=== PATIENT | female | born 1960 | race Caucasian/White ===

== ENCOUNTER 2016-09-26 05:11 | Emergency (ER) | payer MEDICARE, BC ==
[~2016-09-26] VITALS: Ht 162.6 cm; Wt 68.0 kg
[~2016-09-26 05:11] MED LIST: DULO60CA59 PO; HYDR-3498 PO; LEVE-5 PO; LORA1TAB PO; TRAZ150T65 PO
[2016-09-26] MEDS ORDERED: SOD CHLORIDE 0.9% 500 ML IV STA (05:16)
[2016-09-26 05:18] VITALS: Ht 162.6 cm; Wt 68.0 kg
[2016-09-26] MEDS ORDERED: LORAZEPAM 2 MG INJ ONE (05:20)
[2016-09-26] MEDS ORDERED: LORAZEPAM 2 MG INJ IV ONE (05:20)
[2016-09-26 05:51] LABS: ADD SCAN DIFF NO
[2016-09-26 06:03] LABS: ALBUMIN 4.5 g/dl (3.3-4.9); CHLORIDE 107 mmol/L (97-110)
[2016-09-26 06:04] LABS: POTASSIUM 3.2 mmol/L (3.5-5.1); SODIUM 142 mmol/L (135-144)
[2016-09-26 06:05] LABS: HEMOGLOBIN 14.5 g/dl (12.0-16.0); MEAN CORPUSCULAR HEMOGLOBIN 33.1 pg (29.0-33.0); MEAN CORPUSCULAR HGB CONC 36.3 g/dl (32.0-37.0); MEAN CORPUSCULAR VOLUME 91.3 fl (82.0-101.0); MEAN PLATELET VOLUME 10.8 fl (7.4-10.4); PLATELET COUNT 236 10^3/UL (140-415); RED BLOOD COUNT 4.38 10^6/ul (4.20-5.40); RED CELL DISTRIBUTION WIDTH 13.8 % (11.5-14.5)
[2016-09-26 06:06] LABS: ALKALINE PHOSPHATASE 68 IU/L (42-121); ANION GAP 26 (8-16); ASPARTATE AMINO TRANSFERASE 22 IU/L (15-46); BILIRUBIN,INDIRECT 0.1 mg/dl (0-1.1); BILIRUBIN,TOTAL 0.1 mg/dl (0.2-1.3); BLOOD UREA NITROGEN 4 mg/dl (7-20); CARBON DIOXIDE 12 mmol/L (21-31); CREATININE 1.08 mg/dl (0.44-1.00); TOTAL PROTEIN 7.6 g/dl (6.1-8.1)
[2016-09-26 06:07] LABS: ALANINE AMINOTRANSFERASE < 6 IU/L (13-69); ALBUMIN/GLOBULIN RATIO 1.45; CALCIUM 9.5 mg/dl (8.4-10.2); GLUCOSE 112 mg/dl (70-220)
[2016-09-26] MEDS ORDERED: POTASSIUM CHLORIDE (SR) 20 MEQ TAB PO STA (06:34)
[2016-09-26 06:35] VITALS: BP 97/66; PULSE 91; RESP 18
--- NOTE | 2016-09-26 07:01 | ERD ---
ER Documentation Chief Complaint Date/Time DATE: 09/26/16 TIME: 06:55 Chief Complaint witnessed full body seizure while in bed, postictal, combative initially. HPI 56-year-old female with a history of anxiety, depression, seizures presenting to the ER by ambulance after having a seizure episode. Per her , she has had about 5 seizures in the past 10 years. She never had an EEG but she had an MRI last week that showed no abnormalities in her brain. She has been prescribed Dilantin in the past, but she never filled the prescription. She states that her primary care physician does not think that she needs to be taking seizure medications. Patient normally takes Ativan twice a day for her anxiety. She also complains of significant insomnia that has been worsening over the past few days. She denies any recent illness or headache, vision disturbance, focal weakness or numbness, fevers, chills, chest or abdominal pain. She denies any shortness of breath. Currently she feels back to her normal self. She states she feels very ashamed that she had a seizure. No urinary incontinence or tongue biting. The way her describes the seizure is that for about 10 minutes she was conscious and talking to him but stiff. After he called the ambulance, she started becoming unresponsive but her body was no longer stiff. She was very confused when the ambulance got there. The patient remembers talking to her while she felt like she was having a seizure and hearing the ambulance arrived. The next thing she remembers is being in the hospital. ROS All systems reviewed and are negative except as per history of present illness. Medications Home Meds Active Scripts Hydrocodone Bit-Acetaminophen* ([place]*) 5-325 Mg Tab, 1 TAB PO Q6 Y for PAIN, # 20 TAB Prov:EUGENE,TAJ 02/06/15 Levetiracetam* (Keppra*) 500 Mg Tablet, 500 MG PO BID, #60 TAB Prov:EUGENETAJ 02/06/15 Lorazepam* (Lorazepam*) 1 Mg Tablet, 1 MG PO Q8, #20 TAB Prov:EUGENETAJ 02/06/15 Hydrocodone Bit-Acetaminophen* ([place]*) 5-325 Mg Tab, 1 TAB PO Q6 Y for PAIN, # 20 TAB Prov:JAMI NEWTON MD 12/18/14 Reported Medications Duloxetine Hcl* (Duloxetine Hcl*) 60 Mg Capsule.dr, 60 MG PO DAILY, CAP 02/06/15 Trazodone Hcl* (Trazodone Hcl*) 150 Mg Tablet, 150 MG PO HS, TAB 02/06/15 Allergies Allergies: Coded Allergies: Sulfa (Sulfonamide Antibiotics) (Verified Allergy, Unknown, 12/18/14) gabapentin (Verified Allergy, Unknown, 12/18/14) ketorolac (Verified Allergy, Unknown, 12/18/14) PMhx/Soc History of Surgery: No Anesthesia Reaction: No Hx Neurological Disorder: Yes (SEIZURE) Hx Respiratory Disorders: No Hx Cardiac Disorders: No Hx Psychiatric Problems: Yes (ANXIETY, INSOMNIA) Hx Miscellaneous Medical Probl: No Hx Alcohol Use: No Hx Substance Use: No Hx Tobacco Use: Yes Smoking Status: Current every day smoker FmHx Family History: No diabetes Physical Exam Vitals Vital Signs Date Time Temp Pulse Resp B/P Pulse Ox O2 Delivery O2 Flow Rate FiO2 09/26/16 06:35 91 18 97/66 96 Room Air 09/26/16 05:18 97.8 120 18 117/66 95 Physical Exam Const: Well-appearing, somewhat tearful, no apparent distress otherwise Head: Atraumatic Eyes: Normal Conjunctiva, PERRLA, EOMI, no nystagmus ENT: Normal External Ears, Nose and Mouth. Tongue and lips without injury Neck: Full range of motion. Supple. No meningismus. Resp: Clear to auscultation bilaterally Cardio: Regular rate and rhythm, no murmurs Abd: Soft, non tender, non distended. Normal bowel sounds Skin: No petechiae or rashes Back: No midline or flank tenderness Ext: No cyanosis, or edema Neur: Awake and alert and oriented 3, cranial nerves intact, strength and sensations intact in all 4 extremities, normal gait, normal speech Psych: Depressed and anxious mood and Affect Result Diagram: 09/26/1651909/26/16519 Results 24 hrs Laboratory Tests Test 09/26/16 05:18 09/26/16 05:20 Bedside Glucose 120mg/dL White Blood Count 9.010^3/ul Red Blood Count 4.3810^6/ul Hemoglobin 14.5g/dl Hematocrit 40.0% Mean Corpuscular Volume 91.3fl Mean Corpuscular Hemoglobin 33.1pg Mean Corpuscular Hemoglobin Concent 36.3g/dl Red Cell Distribution Width 13.8% Platelet Count 40225^3/UL Mean Platelet Volume 10.8fl Neutrophils % % Lymphocytes % % Monocytes % % Neutrophils # 10^3/ul Lymphocytes # 10^3/ul Monocytes # 10^3/ul Sodium Level 142mmol/L Potassium Level 3.2mmol/L Chloride Level 107mmol/L Carbon Dioxide Level 12mmol/L Anion Gap 26 Blood Urea Nitrogen 4mg/dl Creatinine 1.08mg/dl Glucose Level 112mg/dl Calcium Level 9.5mg/dl Total Bilirubin 0.1mg/dl Direct Bilirubin 0.00mg/dl Indirect Bilirubin 0.1mg/dl Aspartate Amino Transf (AST/SGOT) 22IU/L Alanine Aminotransferase (ALT/SGPT) < 6IU/L Alkaline Phosphatase 68IU/L Total Protein 7.6g/dl Albumin 4.5g/dl Globulin 3.10g/dl Albumin/Globulin Ratio 1.45 Current Medications Medications (Trade) Dose Ordered Sig/Massiel Route PRN Reason Start Time Stop Time Status Last Admin Dose Admin Sodium Chloride (NS) 500 ml @ 500 mls/hr Q1H STAT IV 09/26/16 05:16 09/26/16 06:15 DC 09/26/16 05:25 Lorazepam (Ativan) 1 mg ONCE ONCE IV 09/26/16 05:20 09/26/16 05:21 DC 09/26/16 05:25 Lorazepam (Ativan) 2 mg STK-MED ONCE .ROUTE 09/26/16 05:20 09/26/16 05:21 DC Potassium Chloride (Klor-Con 20) 40 meq ONCE STAT PO 09/26/16 06:34 09/26/16 06:35 DC 09/26/16 06:41 Procedures/MDM Patient is presenting after a recurrent seizure. Currently her vitals are stable and she is afebrile. Her exam is unremarkable. She is back to her baseline now and has not had any further seizures. When she arrived she did receive Ativan but was not actively seizing. Her labs are notable for mild hypokalemia for which she was given potassium replacement orally. I do not think she needs any further workup at this time. I have a low suspicion for acute infection, CVA, intracranial hemorrhage, meningitis, encephalitis, or cardiopulmonary abnormality. She has an appointment scheduled with her primary care doctor, Dr. Robbins, on October 02. I advised she call her doctor today and let him know what happened, as he may want to see her sooner. I tried to get a hold of him and I could not. Patient states she has not been driving for the past 10 years. Return precautions were discussed. Patient was discharged in stable condition. Departure Diagnosis: Primary Impression: Recurrent seizures Additional Impression: Hypokalemia Condition: Stable Patient Instructions: Seizure, Recurrent [Adult] Referrals: AMA ROBBINS MD- Additional Instructions: Follow-up with your doctor within the next few days. Keep your appointment for Saturday. Return to the ER for any recurrent seizures or worsening symptoms. Have your doctor check your potassium when you see him as your potassium was low today. MARILOU VILLAR MD Sep 26, 2016 07:01
[2016-09-26 10:01] LABS: BASOPHIL # 0.1 10^3/ul (0.0-0.1); EOSINOPHILS # 0.5 10^3/ul (0.0-0.5); LYMPHOCYTES # 5.5 10^3/ul (0.8-2.9); MONOCYTE # 0.3 10^3/ul (0.3-0.9); NEUTROPHIL # 2.7 10^3/ul (1.6-7.5)
[2016-09-26 10:02] LABS: PLATELET ESTIMATE PLT APPEAR ADEQUATE
== END 2016-09-26 07:06 | disposition home or self-care (01) ==
LOC: E/R 05:11
DX: G40.909 Epilepsy, unspecified, not intractable, without status epilepticus (principal); E87.6 Hypokalemia; F17.210 Nicotine dependence, cigarettes, uncomplicated; R40.2142 Coma scale, eyes open, spontaneous, at arrival to emergency department; R40.2362 Coma scale, best motor response, obeys commands, at arrival to emergency department; R40.2242 Coma scale, best verbal response, confused conversation, at arrival to emergency department
CPT/HCPCS: 80053; 80306; 82962; 85025; J2060; J7040; 36415; 96374

== ENCOUNTER 2016-11-11 20:03 | Emergency (ER) | payer MEDICARE, BC ==
[~2016-11-11] VITALS: Ht 162.6 cm; Wt 77.3 kg
[2016-11-11 20:09] VITALS: Ht 162.6 cm; Wt 77.3 kg
[2016-11-11] MEDS ORDERED: ASPIRIN 325 MG TAB PO STA (21:26)
[2016-11-11] MEDS ORDERED: LORAZEPAM 2 MG INJ IV ONE (21:30)
[2016-11-11 21:48] LABS: ADD SCAN DIFF NO
[2016-11-11 21:51] LABS: BASOPHIL # 0.1 10^3/ul (0.0-0.1); BASOPHILS % 0.8 % (0.0-2.0); EOSINOPHILS # 0.4 10^3/ul (0.0-0.5); EOSINOPHILS % 6.3 % (0.0-7.0); HEMATOCRIT 38.7 % (37.0-47.0); HEMOGLOBIN 13.7 g/dl (12.0-16.0); LYMPHOCYTES # 2.3 10^3/ul (0.8-2.9); LYMPHOCYTES % 34.7 % (15.0-51.0); MEAN CORPUSCULAR HGB CONC 35.4 g/dl (32.0-37.0); MEAN CORPUSCULAR VOLUME 90.4 fl (82.0-101.0); MONOCYTE # 0.5 10^3/ul (0.3-0.9); MONOCYTES % 7.6 % (0.0-11.0); NEUTROPHIL # 3.3 10^3/ul (1.6-7.5); NEUTROPHILS % 50.3 % (39.0-77.0); PLATELET COUNT 164 10^3/UL (140-415); RED BLOOD COUNT 4.28 10^6/ul (4.20-5.40); WHITE BLOOD COUNT 6.5 10^3/ul (4.8-10.8)
[2016-11-11 22:00] VITALS: TEMP 98.5
--- NOTE | 2016-11-11 22:03 | ERA ---
ER Documentation Chief Complaint Date/Time DATE: 11/11/16 TIME: 22:00 Chief Complaint CHEST PAIN, PALPITATIONS, SOB X 1 HOUR HPI 56-year-old female history of anxiety, palpitations, hormone replacement who presents the emergency room with multiple complaints. The patient is fearful and tearful. The patient describes palpitations for approximately 1 hour with associated shortness of breath. She also describes some mild chest pressure. She denies any fevers or chills, no calf swelling. She does describe a history of anxiety and is feeling extremely anxious. No fevers or chills cough or exertional symptoms. ROS All systems reviewed and are negative except as per history of present illness. Medications Home Meds Active Scripts Lorazepam* (Lorazepam*) 1 Mg Tablet, 1 MG PO Q8H Y for ANXIETY, #10 TAB Prov:SAIDA KIM MD 11/11/16 Hydrocodone Bit-Acetaminophen* ([place]*) 5-325 Mg Tab, 1 TAB PO Q6 Y for PAIN, # 20 TAB Prov:TAJ KNIGHT 02/06/15 Levetiracetam* (Keppra*) 500 Mg Tablet, 500 MG PO BID, #60 TAB Prov:TAJ KNIGHT 02/06/15 Lorazepam* (Lorazepam*) 1 Mg Tablet, 1 MG PO Q8, #20 TAB Prov:TAJ KNIGHT 02/06/15 Hydrocodone Bit-Acetaminophen* ([place]*) 5-325 Mg Tab, 1 TAB PO Q6 Y for PAIN, # 20 TAB Prov:JAMI NEWTON MD 12/18/14 Reported Medications Duloxetine Hcl* (Duloxetine Hcl*) 60 Mg Capsule.dr, 60 MG PO DAILY, CAP 02/06/15 Trazodone Hcl* (Trazodone Hcl*) 150 Mg Tablet, 150 MG PO HS, TAB 02/06/15 Allergies Allergies: Coded Allergies: Sulfa (Sulfonamide Antibiotics) (Verified Allergy, Unknown, 12/18/14) gabapentin (Verified Allergy, Unknown, 12/18/14) ketorolac (Verified Allergy, Unknown, 12/18/14) PMhx/Soc History of Surgery: No Anesthesia Reaction: No Hx Neurological Disorder: Yes (SEIZURE) Hx Respiratory Disorders: No Hx Cardiac Disorders: No Hx Psychiatric Problems: Yes (ANXIETY, INSOMNIA) Hx Miscellaneous Medical Probl: No Hx Alcohol Use: No Hx Substance Use: No Hx Tobacco Use: Yes Smoking Status: Current every day smoker FmHx Family History: No diabetes Physical Exam Vitals Vital Signs Date Time Temp Pulse Resp B/P Pulse Ox O2 Delivery O2 Flow Rate FiO2 11/11/16 22:00 98.5 86 17 150/98 100 Nasal Cannula 2.0 11/11/16 21:20 Nasal Cannula 2 11/11/16 20:09 96.9 97 28 155/81 100 Physical Exam General: Extremely tearful and with labile mood Head: Normocephalic, atraumatic. Eyes: Pupils equally reactive, EOM intact ENT: Moist mucous membranes Neck: Supple, no lymphadenopathy Respiratory: Lungs clear bilaterally, no distress Cardiovascular: RRR, no murmurs, rubs, or gallops Abdominal: Soft, non-tender, non-distended, no peritoneal signs : Deferred MSK: No edema, no unilateral swelling, 5/5 strength Neurologic: Alert and oriented, moving all extremities, normal speech, no focal weakness, no cerebellar signs Skin: No rash Psych: Labile mood, anxious Result Diagram: 11/11/16213311/11/162133 Results 24 hrs Laboratory Tests Test 11/11/16 21:34 White Blood Count 6.510^3/ul Red Blood Count 4.2810^6/ul Hemoglobin 13.7g/dl Hematocrit 38.7% Mean Corpuscular Volume 90.4fl Mean Corpuscular Hemoglobin 32.0pg Mean Corpuscular Hemoglobin Concent 35.4g/dl Red Cell Distribution Width 13.0% Platelet Count 00089^3/UL Mean Platelet Volume 10.0fl Neutrophils % 50.3% Lymphocytes % 34.7% Monocytes % 7.6% Eosinophils % 6.3% Basophils % 0.8% Nucleated Red Blood Cells % 0.0/100WBC Neutrophils # 3.310^3/ul Lymphocytes # 2.310^3/ul Monocytes # 0.510^3/ul Eosinophils # 0.410^3/ul Basophils # 0.110^3/ul Nucleated Red Blood Cells # 0.010^3/ul Prothrombin Time 12.4Sec Prothrombin Time Ratio 1.0 INR International Normalized Ratio 0.92 Activated Partial Thromboplast Time 28.6Sec Sodium Level 146mmol/L Potassium Level 3.6mmol/L Chloride Level 108mmol/L Carbon Dioxide Level 31mmol/L Anion Gap 11 Blood Urea Nitrogen 8mg/dl Creatinine 0.87mg/dl Glucose Level 72mg/dl Calcium Level 9.6mg/dl Troponin I < 0.012ng/ml Current Medications Medications (Trade) Dose Ordered Sig/Massiel Route PRN Reason Start Time Stop Time Status Last Admin Dose Admin Aspirin (Aspirin) 325 mg ONCE STAT PO 11/11/16 21:26 11/11/16 21:28 DC 11/11/16 21:39 Lorazepam (Ativan) 1 mg ONCE ONCE IV 11/11/16 21:30 11/11/16 21:31 DC 11/11/16 21:39 IV Flush 10 ml 10 ml STK-MED ONCE .ROUTE 11/11/16 22:50 11/11/16 22:51 DC Sodium Chloride 100 ml @ ud STK-MED ONCE .ROUTE 11/11/16 22:50 11/11/16 22:51 DC Iohexol (Omnipaque) 100 ml @ ud STK-MED ONCE .ROUTE 11/11/16 22:50 11/11/16 22:51 DC Procedures/MDM EKG, MONITORS, & DIAGNOSTIC IMAGING: EKG: I reviewed and interpreted a 12-lead EKG. Rhythm: Normal sinus rhythm Ectopy: None Intervals: No abnormalities ST segments: No elevations or depressions T waves: No contiguous inversions Repeat EKG: EKG: I reviewed and interpreted a 12-lead EKG. Rhythm: Normal sinus rhythm Ectopy: None Intervals: No abnormalities ST segments: No elevations or depressions T waves: No contiguous inversions Chest x-ray: I reviewed and interpreted a 1 view of the chest Mediastinum: No enlargement Cardiac silhouette: No cardiomegaly Airspace: Clear lung domínguez bilaterally without evidence of pneumothorax Bones: No evidence of fracture CTPA: PENDING LAB INTERPRETATION: Negative troponin MEDICAL DECISION MAKING: The patient's history, physical exam and clinical presentation is concerning for possible cardiogenic etiology and acute coronary syndrome. However, given her clinical exam and presentation this is more consistent with likely anxiety. However, the patient does describe chest pressure. The patient also describes palpitations and is on hormone replacement therapy, consideration for pulmonary embolism. Moderate risk therefore CTPA is necessary. Based on the patient's clinical exam and history and risk factors, I have a much lower clinical concern for acute aortic dissection, pneumothorax, pneumonia , cardiac tamponade HEART Score: 3 MACE Rate: 1.7 percent Shared Decision Making: We had a conversation regarding risk stratification, MACE rate, and the risks, benefits, alternatives of disposition planning options. Disposition planning: I recommend inpatient hospitalization however the patient is hesitant. She would like to try medications first. She understands the risks of cardiac etiology. ER COURSE: The patient has improved symptoms after anxiolysis. I believe this is more consistent with anxiety. The patient has a negative EKG and negative troponin. I discussed the possibility of hospitalization but she wishes to go home. CTPA is pending and endorsed to the oncoming provider. If negative the patient can be safely discharged home. I kept the patient and/or family informed of laboratory and diagnostic imaging results throughout the emergency room course. DISPOSITION PLAN: Anticipate discharge home with negative CTPA We discussed follow up with the patient's primary care doctor within 24 to 48 hours as needed. We also discussed return to the emergency room for worsening symptoms or worsening condition. Outpatient referral: [None required] Discharge Medications: Ativan Departure Diagnosis: Primary Impression: Anxiety reaction Additional Impressions: Chest pain Qualified Code: R07.9 - Chest pain, unspecified type Palpitations Condition: Stable SAIDA KIM MD Nov 11, 2016 22:03
[2016-11-11 22:06] LABS: INR 0.92; PARTIAL THROMBOPLASTIN TIME 28.6 Sec (25.0-35.0); PROTIME 12.4 Sec (12.2-14.2)
[2016-11-11 22:07] LABS: ANION GAP 11 (8-16); BLOOD UREA NITROGEN 8 mg/dl (7-20); CALCIUM 9.6 mg/dl (8.4-10.2); CARBON DIOXIDE 31 mmol/L (21-31); CHLORIDE 108 mmol/L (97-110); CREATININE 0.87 mg/dl (0.44-1.00); GLUCOSE 72 mg/dl (70-220); POTASSIUM 3.6 mmol/L (3.5-5.1); SODIUM 146 mmol/L (135-144)
[2016-11-11 22:19] LABS: TROPONIN-I < 0.012 ng/ml (0.00-0.12)
[2016-11-11] MEDS ORDERED: SOD CHLORIDE 0.9% 100 ML ONE (22:50)
[2016-11-11] MEDS ORDERED: IOHEXOL 100 ML ONE (22:50)
--- NOTE | 2016-11-11 22:55 | RADRPT ---
PROCEDURE: XR Chest. CLINICAL INDICATION: Chest pain. TECHNIQUE: Portable AP semi erect view of the chest was obtained. COMPARISON: 02/06/2015 FINDINGS: The cardiomediastinal silhouette is within normal limits. The lungs are clear. Chronic pleural par enchymal reaction blunting the left costophrenic angle is unchanged from the prior examination. The re is no evidence of pleural effusion or pneumothorax. Old healed left posterior sixth rib fracture is present. There is no evidence of acute osseous abnormality. Metallic fixation plate and screws in the visualized cervical spine are consistent with prior surgery. RPTAT:HJJR IMPRESSION: 1. 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 2. No evidence of acute intrathoracic abnormality. Physician Gaye Date Time Electronically viewed and signed by Physician Gaye on 11/11/2016 22:55 /
[2016-11-11] MEDS ORDERED: LORA1TAB PO (23:18)
--- NOTE | 2016-11-11 23:24 | RADRPT ---
PROCEDURE: CT angiogram of the chest with contrast. CLINICAL INDICATION: Chest pain. TECHNIQUE: CT angiogram of the chest was obtained using a multi-detector high-resolution CT. Con tiguous axial images were obtained during the dynamic injection of 100 cc of Omnipaque 350 intraveno us contrast. Coronal and sagittal reformatted images were obtained. 3-D reformatted images were al so obtained. Images were reviewed on a PACS workstation. One or more of the following dose reduction techniques were used: - Automated exposure control. - Adjustment of the mA and/or kV according to patient size. - Use of iterative reconstruction technique. Exam CTD/vol = 10.84 mGy. Total exam DLP = 416.20 mGy-cm. COMPARISON: None. FINDINGS: The main pulmonary artery followed to the segmental divisions are well opacified. There is no filli ng defect or evidence of pulmonary embolism. The heart is normal in size. There is no pericardial thickening or effusion. The aorta is of normal course and caliber without evidence of aneurysm or d issection. There is no evidence of chest wall mass. The visualized thyroid is unremarkable. There are no enla rged axillary lymph nodes. There are no enlarged mediastinal or hilar lymph nodes by CT criteria. There is mild bibasilar atelectasis. There is no parenchymal nodule or consolidation. There is no pleural effusion. The central tracheobronchial tree is within normal limits. Limited evaluation of the upper abdomen demonstrates diffuse nodular contour of the liver consistent with cirrhosis. The spleen is mildly enlarged. IMPRESSION: No evidence of pulmonary embolism or aortic dissection. Mild bibasilar atelectasis. Cirrhotic liver. Mild splenomegaly. .Aubrey Parson MD, MD Date Time Electronically viewed and signed by .Aubrey Parson MD, MD on 11/11/2016 23:23 .T/
[2016-11-11 23:29] VITALS: BP 113/73; PULSE 79; RESP 18
== END 2016-11-11 23:56 | disposition home or self-care (01) ==
LOC: E/R 20:03
DX: F41.9 Anxiety disorder, unspecified (principal); R00.2 Palpitations; F17.210 Nicotine dependence, cigarettes, uncomplicated; R40.2142 Coma scale, eyes open, spontaneous, at arrival to emergency department; R40.2252 Coma scale, best verbal response, oriented, at arrival to emergency department; R40.2362 Coma scale, best motor response, obeys commands, at arrival to emergency department
CPT/HCPCS: 36415; 71010; 71275; 80048; 84484; 85025; 85610; 85730; 93005; 96374; 99285; J2060; Q9967

== ENCOUNTER 2017-10-10 23:02 | Inpatient (IN) | END 2017-11-07 10:50 | disposition home or self-care (01) | DRG 871 ==